=== PATIENT | female | born 1985 | race Hispanic/Latino ===

== ENCOUNTER 2024-12-23 08:57 | Emergency (ER) | payer SELFPAY ==
[2024-12-23 09:03] VITALS: BP 108/69
[2024-12-23] MEDS: TYLENOL 1000 MG PO (10:26)
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
[2024-12-23 12:10] VITALS: BP 112/74
== END 2024-12-23 12:34 | disposition home or self-care (01) ==
LOC: EMR 08:57
PROVIDERS: EMERGENCY PHYSICIAN Emergency Medicine
DX: R51.9 Headache, unspecified (principal); S63.502A Unspecified sprain of left wrist, initial encounter; S80.02XA Contusion of left knee, initial encounter; V89.2XXA Person injured in unspecified motor-vehicle accident, traffic, initial encounter; Y92.410 Unspecified street and highway as the place of occurrence of the external cause
CPT/HCPCS: 99284; 29125; 70450; 72125; 73090; 73110; 73564